=== PATIENT | female | born 1995 | race Caucasian/White ===

== ENCOUNTER 2020-03-08 18:14 | Emergency (ER) | payer OTHER, SELFPAY ==
--- NOTE | ~2020-03-08 | CT_ITS ---
EXAMINATION: CTA brain carotid EXAM DATE: 03/08/2020 20:04 INDICATION: Blurred vision TECHNIQUE: Noncontrast head CT. Spiral CTA of the carotid arteries was performed with intravenous i njection 100 cc of Omnipaque 350. Axial, coronal, sagittal reformatted images reviewed. Additional r eformatted images created on dedicated 3-D workstation. NASCET comparable standard used to assess th e degree of arterial stenosis. Spiral CT angiogram cerebral arteries performed with the same intrave nous injection of contrast. Source images of the brain CTA transferred to dedicated workstation for 3 -D rotational image creation. Coronal, sagittal maximum intensity pixel images also reviewed. The d ose-length product (DLP) for this examination was 1557.98 mGy-cm. The exposure was tailored accordi ng to patient size, and iterative reconstruction (ASIR) was used as additional dose reduction techniq ue. There is no prior study for comparison. FINDINGS: There is no focal carotid plaque or stenosis. The vertebral arteries are codominant. There is no carotid or vertebral basilar arterial dissection or fibromuscular dysplasia. There are no cere bral artery aneurysms. There is symmetric cerebral artery arborization. The sagittal, transverse and sigmoid sinuses enhance normally, no venous sinus thrombosis. Internal cerebral veins also enhance no rmally. There is no acute intraparenchymal hemorrhage. No evidence of intraparenchymal brain mass lesion. N o evidence of acute infarction. There is no mass effect or midline shift. There is no obstructive hy drocephalus suspected. There are no extra-axial collections. There are no calvarial acute fractures . There are no areas of abnormal enhancement on the postcontrast images. IMPRESSION: 1. Unremarkable CTA brain carotid exam. 2. No carotid stenosis. Reviewed, dictated and finalized at location A. ONE DIVER
[2020-03-08 18:18] VITALS: BP 165/113; PULSE 108; RESP 18; TEMP 36.6; O2SAT 96
--- NOTE | 2020-03-08 18:33 | ED.GENADULT ---
HPI - General Adult General Chief complaint: Headache Stated complaint: blurry vision, headache, fatigue x 1 week Time Seen by Provider: 03/08/20 18:19 Source: patient History of Present Illness HPI narrative: Patient is 25 y/o female complaining of moderate, intermittent blurred vision for 1 week. She states that she sees double sometimes. She states concentrating and looking at something for prolonged time aggravates her blurred vision. She also has some slight head pressure. She denies any weakness/numbness in arms or legs. She denies any difficulty with speech or ambulation. Related Data Allergies Allergy/AdvReac Type Severity Reaction Status Date / Time No Known Allergies Allergy Verified 03/08/20 18:25 Review of Systems Constitutional: Constitutional: Denies chills, Denies fever(s), Reports headache(s) and Denies weakness Eyes: Eyes: Reports blurry vision ENT: Reports headache(s) and Denies neck pain Cardiovascular: Cardiovascular: Denies chest pain and Denies dyspnea Respiratory: Respiratory: Denies cough and Denies dyspnea Gastrointestinal: Gastrointestinal: Denies abdominal pain, Denies diarrhea, Denies nausea and Denies vomiting Genitourinary: Genitourinary: Denies hematuria and Denies dysuria Musculoskeletal: Musculoskeletal: Denies back pain and Denies neck pain Neurologic: Reports headache(s) and Denies weakness Exam Const: General: no acute distress and well developed Orientation/consciousness: oriented to person, oriented to place, oriented to time and patient oriented x3 HENMT: Head: normocephalic Ears: external ears normal General nose exam: Normal external nose present Eyes: General: appearance normal, both eyes and all related structures Conjunctivae: conjunctivae normal Neck: Neck: normal visual inspection and full ROM Chest: Chest palpation & inspection: normal inspection of the chest and no tenderness Resp: Effort & Inspection: normal respiratory effort Auscultation: clear to auscultation bilaterally Cardio: Rate: tachycardic Rhythm: regular rhythm GI: GI Palp: No abdominal tenderness and Yes Soft to palpation Skin: General skin exam: normal color and turgor normal Neuro: General: oriented to person, oriented to place, oriented to time and patient oriented x3 Cranial nerves: Yes CN's II-XII intact bilaterally Cognition (Neuro): normal cognition Speech: normal speech Motor exam (neuro): 5/5 motor strength present throughout Sensory Exam: normal sensation Coordination: [id number] test normal and [id number] test normal Extrem: General: normal to inspection, full ROM and no pedal edema Psych: Appearance: grossly normal Mental Status: mental status grossly normal Affect: normal affect Course Vital Signs Vital signs: Vital Signs Temperature 36.6 C 03/08/20 18:18 Pulse Rate 108 H 03/08/20 18:18 Respiratory Rate 18 03/08/20 18:18 Blood Pressure 165/113 H 03/08/20 18:18 Pulse Oximetry 96 03/08/20 18:18 Temperature 36.6 C 03/08/20 18:18 Pulse Rate 89 03/08/20 22:07 Respiratory Rate 18 03/08/20 22:07 Blood Pressure 116/76 03/08/20 22:07 Pulse Oximetry 100 03/08/20 22:07 Medical Decision Making Vital Signs Vital Signs: Vital Signs Temperature 36.6 C 03/08/20 18:18 Pulse Rate 108 H 03/08/20 18:18 Respiratory Rate 18 03/08/20 18:18 Blood Pressure 165/113 H 03/08/20 18:18 Pulse Oximetry 96 03/08/20 18:18 Temperature 36.6 C 03/08/20 18:18 Pulse Rate 89 03/08/20 22:07 Respiratory Rate 18 03/08/20 22:07 Blood Pressure 116/76 03/08/20 22:07 Pulse Oximetry 100 03/08/20 22:07 Lab Data Result diagrams: 03/08/20 18:32 03/08/20 18:32 Labs: Lab Results 03/08/20 03/08/20 03/08/20 Range/Units 18:32 18:32 18:32 WBC 8.8 (4.5-10.0) K/mm3 RBC 4.60 (4.2-5.4) M/mm3 Hgb 13.0 (12.0-15.0) g/dL Hct 38.3 (37.0-47.0) % MCV 83.3 (80-100) fl MCH 28.3
[2020-03-08 18:39] LABS: Basophils Percent Auto 0.5 % (0.2-1.2); Eosinophils Absolute Auto 0.1 K/mm3 (0-0.3); Eosinophils Percent Auto 1.4 % (0-4.4); Hematocrit 38.3 % (37.0-47.0); Immature Granulocyte Absolute 0.02 K/mm3 (0.00-0.031); Immature Granulocyte Percent A 0.2 % (0-0.5); Lymphocytes Absolute Auto 2.86 K/mm3 (0.9-3.2); Lymphocytes Percent Auto 32.6 % (18.3-44.2); Mean Corpuscular HGB Conc 33.9 g/dl (32-36); Mean Corpuscular Hemoglobin 28.3 pg (26-34); Mean Corpuscular Volume 83.3 fl (80-100); Mean Platelet Volume 11.1 fl (7.4-10.4); Monocytes Absolute Auto 0.6 K/mm3 (0.1-0.6); Monocytes Percent Auto 6.7 % (2.6-8.5); Neutrophils Absolute Auto 5.1 K/mm3 (1.3-6.7); Neutrophils Percent Auto 58.6 % (45.5-73.1); Platelet Count Result 317 k/mm3 (150-375); Red Cell Distribution Width 13.2 % (11.5-14.5); White Blood Count 8.8 K/mm3 (4.5-10.0)
[2020-03-08 18:41] LABS: Add Urine Microscopic? NO; Appearance Urine Clear (Clear); Bilirubin Urine Negative (Negative); Blood Urine Negative (Negative); Color Urine Colorless (Yellow); Glucose Urine UA Negative (Negative); Ketones Urine Negative (Negative); Leukocyte Esterase Ur Negative LEU/UL (Negative); Nitrate Urine Negative (Negative); Protein Urine Negative (Negative); Urobilinogen Urine Negative mg/dL (<2.0)
[2020-03-08 18:44] LABS: Specific Grav Ur 1.002 (1.001-1.035)
[2020-03-08 18:50] LABS: Anion Gap 8 mmol/L (8-16); Blood Urea Nitrogen 8 mg/dL (7-17); Calcium 8.9 mg/dL (8.4-10.2); Carbon Dioxide 24 mmol/L (22-30); Chloride 107 mmol/L (98-107); Estimated CRCL calculation 87 ml/min; Estimated Glomerular Filt Rate > 60; Glucose 105 mg/dL (65-105); Potassium 3.7 mmol/L (3.4-5.0); Sodium 139 mmol/L (137-145)
[2020-03-08] MEDS: hydroCHLOROthiazide 25 MG TABLET PO (19:28)
[2020-03-08 19:30] VITALS: BP 150/97
[2020-03-08 21:00] VITALS: BP 122/77; PULSE 84; RESP 18; O2SAT 100
[2020-03-08 22:07] VITALS: BP 116/76; PULSE 89; RESP 18; O2SAT 100
== END 2020-03-08 22:09 | disposition home or self-care (01) ==
PROVIDERS: Emergency Provider Emergency Medicine
DX: H53.8 Other visual disturbances (principal); I10 Essential (primary) hypertension; R51.9 Headache, unspecified
CPT/HCPCS: 36415; 70496; 70498; 80048; 81003; 81025; 85025; 99284; A9270; Q9967

== ENCOUNTER 2021-03-01 12:15 | Outpatient (CLI) | payer OTHER, SELFPAY ==
[2021-03-01 13:01] LABS: Basophils Percent Auto 0.9 % (0.2-1.2); Eosinophils Absolute Auto 0.1 K/mm3 (0-0.3); Eosinophils Percent Auto 1.5 % (0-4.4); Hematocrit 38.4 % (37.0-47.0); Hemoglobin 12.7 g/dL (12.0-15.0); Immature Granulocyte Absolute 0.01 K/mm3 (0.00-0.031); Immature Granulocyte Percent A 0.2 % (0-0.5); Lymphocytes Absolute Auto 1.85 K/mm3 (0.9-3.2); Lymphocytes Percent Auto 40.7 % (18.3-44.2); Mean Corpuscular HGB Conc 33.1 g/dl (32-36); Mean Corpuscular Hemoglobin 27.7 pg (26-34); Mean Corpuscular Volume 83.7 fl (80-100); Mean Platelet Volume 10.6 fl (7.4-10.4); Monocytes Absolute Auto 0.3 K/mm3 (0.1-0.6); Monocytes Percent Auto 6.6 % (2.6-8.5); Neutrophils Absolute Auto 2.3 K/mm3 (1.3-6.7); Neutrophils Percent Auto 50.1 % (45.5-73.1); Platelet Count Result 302 k/mm3 (150-375); Red Blood Count 4.59 M/mm3 (4.2-5.4); Red Cell Distribution Width 12.9 % (11.5-14.5); White Blood Count 4.5 K/mm3 (4.5-10.0)
[2021-03-01 13:11] LABS: Add Urine Microscopic? YES; Appearance Urine Cloudy (Clear); Bilirubin Urine Negative (Negative); Blood Urine 1+ (Negative); Color Urine Yellow (Yellow); Glucose Urine UA Negative (Negative); Ketones Urine Trace mg/dL (Negative); Leukocyte Esterase Ur Trace LEU/UL (Negative); Mucus Urine Rare /lpf; Nitrate Urine Negative (Negative); Protein Urine Negative (Negative); Specific Grav Ur 1.023 (1.001-1.035); Squamous Epithelial Cell Urine Many /hpf (Few); Urobilinogen Urine Negative mg/dL (<2.0)
[2021-03-01 13:16] LABS: Alanine Aminotransferase 16 U/L (4-35); Albumin Level 4.4 g/dL (3.5-5.1); Alkaline Phosphatase 47 U/L (38-126); Anion Gap 7 mmol/L (8-16); Aspartate Amino Transferase 23 U/L (14-36); Bilirubin,Total 0.5 mg/dL (0.2-1.3); Blood Urea Nitrogen 9 mg/dL (7-17); Carbon Dioxide 24 mmol/L (22-30); Chloride 104 mmol/L (98-107); Cholesterol 167 mg/dL (0-200); Estimated Glomerular Filt Rate > 60; Glucose 96 mg/dL (65-110); HDL Direct 52 mg/dL; Sodium 135 mmol/L (137-145); Triglycerides 83 mg/dL (<150)
[2021-03-01 13:27] LABS: LDL Cholesterol Direct 94 mg/dL
[2021-03-01 13:31] LABS: Vitamin D 25 Hydroxy 44.7 ng/mL
[2021-03-01 13:41] LABS: Hemoglobin A1C 5.2 % (<5.7)
[2021-03-03 02:40] LABS: PCP NEGATIVE ng/mL (<25)
[2021-03-05 15:25] LABS: Amphetamines NEGATIVE; Marijuana Metabolites NEGATIVE
[2021-03-05 15:26] LABS: Barbiturates NEGATIVE; Benzodiazepines NEGATIVE; Cocaine Metabolites NEGATIVE
[2021-03-06 10:26] LABS: Folic Acid 16.5 ng/mL (2.76->20)
== END 2021-03-01 12:16 | disposition home or self-care (01) ==
PROVIDERS: Visit Provider Nurse Practitioner Psychiatric/Mental Health
DX: F33.3 Major depressive disorder, recurrent, severe with psychotic symptoms (principal); F41.1 Generalized anxiety disorder; F51.01 Primary insomnia; F31.32 Bipolar disorder, current episode depressed, moderate; Z79.899 Other long term (current) drug therapy; E55.9 Vitamin D deficiency, unspecified
CPT/HCPCS: 36415; 80053; 80061; 80307; 81001; 82248; 82306; 82607; 82746; 83036; 84439; 84443; 85025

== ENCOUNTER 2021-03-07 16:44 | Emergency (ER) | payer OTHER, SELFPAY ==
[2021-03-07 16:52] VITALS: BP 124/80; PULSE 90; RESP 16; TEMP 36.8; O2SAT 100
--- NOTE | 2021-03-07 19:32 | ED.GENADULT ---
HPI - General Adult General Chief complaint: Upper Respiratory Infection Stated complaint: Cold Source: patient and RN notes reviewed Limitations: no limitations History of Present Illness HPI narrative: The unvaccinated patient, non-smoker/nondrinker on min meds for bipolar, presents with subjective breathing difficulties. Patient states she has a weeklong history of air hunger, shortness of breath, that is like a yawn , located in lower neck. No fever, cough, wheezing, insomnia, night dyspnea; no acid reflux, abdominal discomfort-but she is chronically bloated . No calf pain/edema, chest pain; no loss of taste/smell, vomiting/diarrhea; symptoms are mild, intermittent unrelieved with Claritin. Patient recently had an increase in her bipolar med Abilify for increasing bipolar/manic concerns; discussed possible other causes [ GI, infectious, pulmonary (RAD), mood, etc.] will treat broadly with a trial of meds. She also had this month recent stable blood testing [CBC, chemistry, tox screen, etc. ]; patient reassured of stable vital signs [pulse ox 100, P 90 ] and advised to see prior doctors in follow-up. Related Data Home Medications Medication Instructions Recorded Confirmed aripiprazole 10 mg PO DAILY 03/07/21 03/07/21 Allergies Allergy/AdvReac Type Severity Reaction Status Date / Time No Known Allergies Allergy Verified 03/07/21 16:49 Review of Systems Review of Systems: General/Constitutional: No weight loss,fever Eyes: N0: Redness,discharge Ears/Nose/Throat: No: Epistaxis,ear discharge Respiratory: Denies: Hemoptysis Gastrointestinal: No Vomiting, Bleeding-rectal Skin: No Lumps, eruption Neurologic: No Focal Weakness,Sz Hematologic: Denies: Petechiae/Purpura Psychiatric: No: Suicida ideationl All Other Systems: Reviewed and Negative PMFSH Comments At time of signature, agree with nursing past medical, surgical, social and family history. There is no relevant family history pertinent to the presenting complaint Exam Narrative: General Appearance: Overweight/well nourished, No distress EYE: PERRLA, Conjunctiva clear Ears: External ear normal Nose: Normal nose Mouth/Throat: Normal appearing, Normal lips Neck: Supple Respiratory: Airway patent, No respiratory distress Cardiovascular: RRR Abdomen: Soft, Non-tender, Musculoskeletal: Full ROM Skin: Warm, Dry Neurological: A&O x3, CN II-X intact Psychiatric: Normal mood, Normal affect Course Vital Signs Vital signs: Vital Signs Temperature 98.2 F 03/07/21 16:52 Pulse Rate 90 03/07/21 16:52 Respiratory Rate 16 03/07/21 16:52 Blood Pressure 124/80 03/07/21 16:52 Pulse Oximetry 100 03/07/21 16:52 Temperature 98.2 F 03/07/21 16:52 Pulse Rate 90 03/07/21 16:52 Respiratory Rate 16 03/07/21 16:52 Blood Pressure 124/80 03/07/21 16:52 Pulse Oximetry 100 03/07/21 16:52 Medical Decision Making Vital Signs Vital Signs: Vital Signs Temperature 98.2 F 03/07/21 16:52 Pulse Rate 90 03/07/21 16:52 Respiratory Rate 16 03/07/21 16:52 Blood Pressure 124/80 03/07/21 16:52 Pulse Oximetry 100 03/07/21 16:52 Temperature 98.2 F 03/07/21 16:52 Pulse Rate 90 03/07/21 16:52 Respiratory Rate 16 03/07/21 16:52 Blood Pressure 124/80 03/07/21 16:52 Pulse Oximetry 100 03/07/21 16:52 Discharge Plan Discharge Clinical Impression: Globus sensation Patient Disposition: Home, Self-Care Condition: Stable Instructions: Shortness of Breath (ED) Additional Instructions: See your other doctors as scheduled [counselor, urology, etc.] Prescriptions: New omeprazole magnesium [Prilosec OTC] 20 mg tablet,delayed release (DR/EC) 20 mg PO DAILY Qty: 20 RF: 2 ipratropium bromide 17 mcg/actuation HFA aerosol inhaler 2 puff inhalation TID Qty: 12.9 RF: 1 No Action aripiprazole 10 mg tablet 10 mg PO DAILY RF: 0 Follow-up/Referrals: PHYSICIAN,CASE REPAIRER [P
== END 2021-03-07 17:40 | disposition home or self-care (01) ==
PROVIDERS: Emergency Provider Emergency Medicine
DX: R09.89 Other specified symptoms and signs involving the circulatory and respiratory systems (principal); F31.9 Bipolar disorder, unspecified
CPT/HCPCS: 99213; G0463

== ENCOUNTER 2021-05-29 09:22 | Emergency (ER) | payer OTHER, SELFPAY ==
[2021-05-29] VITALS (11 sets, daily range): BP systolic 88–126; BP diastolic 63–78; PULSE 67–116; RESP 15–22; TEMP 36.7–36.8; O2SAT 100
--- NOTE | ~2021-05-29 | CT_ITS ---
EXAMINATION: CT abdomen pelvis w con DATE: 05/29/2021 11:52 INDICATION: Abdominal pain. Nausea and vomiting. TECHNIQUE: Computed tomography (CT) of the abdomen and pelvis was performed with 100 mL Omnipaque 350 intravenous contrast. Automated exposure control and iterative reconstruction technique were employe d. The dose-length product was 370.72 mGy-cm. COMPARISON: None. FINDINGS: The visualized portions of the lung bases are clear without pneumonia or pleural effusion. The heart size is normal. No pericardial effusion. The liver, gallbladder, spleen, pancreas, adrenal glands, and kidneys are normal. There are no dilated loops of bowel. The appendix is normal. There ar e no pathologically enlarged lymph nodes. There is no free intraperitoneal fluid. The bones are unrem arkable. IMPRESSION: 1. No etiology for the patient's symptoms. Reviewed, dictated and finalized at location A. NSED ACUPUNCTURIST
--- NOTE | ~2021-05-29 | XR_ITS ---
EXAMINATION: XR chest 2V DATE: 05/29/2021 10:19 INDICATION: Chest tightness. TECHNIQUE: Frontal and lateral views of the chest were obtained. COMPARISON: None. FINDINGS: The chest demonstrates clear lungs without pneumonia, pleural effusion, or pneumothorax. Th e heart size is normal. IMPRESSION: 1. No acute cardiopulmonary disease. Reviewed, dictated and finalized at location A. LE APPLICATIONS ANALYST
[2021-05-29 09:49] LABS: Basophils Absolute Auto 0.1 K/mm3 (0.0-0.1); Basophils Percent Auto 0.7 % (0.2-1.2); Eosinophils Percent Auto 0.1 % (0-4.4); Hematocrit 42.5 % (37.0-47.0); Hemoglobin 13.7 g/dL (12.0-15.0); Immature Granulocyte Absolute 0.02 K/mm3 (0.00-0.031); Immature Granulocyte Percent A 0.3 % (0-0.5); Lymphocytes Absolute Auto 1.08 K/mm3 (0.9-3.2); Lymphocytes Percent Auto 15.5 % (18.3-44.2); Mean Corpuscular HGB Conc 32.2 g/dl (32-36); Mean Corpuscular Hemoglobin 28.1 pg (26-34); Mean Corpuscular Volume 87.1 fl (80-100); Mean Platelet Volume 10.6 fl (7.4-10.4); Monocytes Absolute Auto 0.3 K/mm3 (0.1-0.6); Monocytes Percent Auto 3.9 % (2.6-8.5); Neutrophils Absolute Auto 5.5 K/mm3 (1.3-6.7); Neutrophils Percent Auto 79.5 % (45.5-73.1); Platelet Count Result 347 k/mm3 (150-375); Red Blood Count 4.88 M/mm3 (4.2-5.4); Red Cell Distribution Width 12.9 % (11.5-14.5)
--- NOTE | 2021-05-29 09:52 | ECG_ITS ---
Measurements Intervals [place] Rate: 76 P: 47 [place]: 126 QRS: 11 QRSD: 85 T: 52 QT: 387 QTc: 435 Interpretive Statements SINUS RHYTHM BASELINE ARTIFACT BUT PROBABLY NORMAL EKG NO PREVIOUS ECG AVAILABLE FOR COMPARISON Electronically Signed On 05-29-2021 13:23:39 CHANNEL ROUGHER by Shanna Cai M.D.
--- NOTE | 2021-05-29 09:55 | ED.NAVMDI ---
HPI - Nausea/Vomiting/Diarrhea General Chief complaint: Nausea/Vomiting/Diarrhea Stated complaint: N/V Time Seen by Provider: 05/29/21 09:32 Source: patient Mode of arrival: ambulatory Limitations: no limitations History of Present Illness HPI Narrative: This is a 26 year old female that presents to the ER for nausea ongoing over the last couple of days. Associated with chills and headache. Also reports chest tightness and feeling like she is having a hard time catching her breath. She is unsure if this is due to her anxiety. She is not influenza or Covid vaccinated. Reports she just had COVID a month and a half ago. Denies fever, vomiting, diarrhea, cough, congestion, or sore throat. Related Data Home Medications Medication Instructions Recorded Confirmed aripiprazole 10 mg PO DAILY 03/07/21 03/07/21 Allergies Allergy/AdvReac Type Severity Reaction Status Date / Time No Known Allergies Allergy Verified 03/07/21 16:49 Review of Systems Review of Systems: CONSTITUTIONAL: Denies fever CARDIOVASCULAR: Reports chest pain RESPIRATORY: Reports dyspnea. Denies cough GASTROINTESTINAL: Reports abdominal pain, nausea. Denies vomiting, or diarrhea. GENITOURINARY: Denies dysuria All systems reviewed & are unremarkable except as noted in HPI and below PMFSH Surgical History Surgical History (Updated 05/29/21 @ 10:05 by Jayda Valentine PA-C) History of dilation and curettage Social History Social History (Updated 05/29/21 @ 10:05 by Jayda Valentine PA-C) Smoking status: Former smoker Exam Narrative: GENERAL: Well-appearing, well-nourished, and in no acute distress. HEAD: Normocephalic, atraumatic. EYES: EOMI. ENT: Mucous membranes moist. Oropharynx without tonsillar hypertrophy exudate or other lesions. CHEST: Clear to auscultation. No respiratory distress. No wheezes rales or rhonchi HEART: Regular rate and rhythm. No murmur heard. Normal peripheral pulses. ABDOMEN: Soft, nontender, nondistended, normal active bowel sounds. EXTREMITIES: Normal range of motion. No edema. SKIN: Warm, dry, no rash. NEURO: No focal deficits. Alert and oriented x3. PSYCH: Normal mood and affect Course Vital Signs Vital signs: Vital Signs Temperature 98.2 F 05/29/21 09:51 Pulse Rate 93 03/12/22 09:51 Respiratory Rate 22 H 05/29/21 09:51 Blood Pressure 126/63 05/29/21 09:51 Pulse Oximetry 100 05/29/21 09:51 Temperature 98.1 F 05/29/21 11:33 Pulse Rate 79 05/29/21 11:33 Respiratory Rate 18 05/29/21 11:33 Blood Pressure 105/70 05/29/21 11:33 Pulse Oximetry 100 05/29/21 11:33 MDM - Nausea/Vomiting/Diarrhea MDM Narrative Medical decision making narrative: Patient presents to the emergency department for nausea, chills and headaches. She is afebrile and nontoxic-appearing. Orthostatic on arrival, given 2 L of IV fluids in the ED with relief. CBC without concerning findings. Metabolic panel with some evidence of dehydration. UA without evidence of infection. Bedside test is negative. Influenza screen was negative. Chest x-ray without acute cardiopulmonary abnormality. CT scan of the abdomen and pelvis without acute findings. EKG without concerning changes. Patient hydrated with improvement in metabolic panel. Has now closed her gap. Able to tolerate p.o. challenge. Reports she is feeling better and ready for discharge home. Patient was instructed on continued care of viral infection. She is to follow-up with her primary care doctor. She was given warnings to return to the ER Lab Data Attestation: I reviewed the patient's lab results. Result diagrams: 05/29/21 09:41 05/29/21 13:31 Labs: Lab Results 05/29/21 05/29/21 05/29/21 Range/Units 09:41 09:41 09:41 WBC 7.0 (4.5-10.0) K/mm3 RBC 4.88 (4.2-5.4) M/mm3 Hgb 13.7 (12.0-15.0) g/dL Hct 42.5 (37.0-47.0) % MCV 87.1 (80-100) fl MCH 28.1 (26-34) pg MCHC 32.2
[2021-05-29 09:59] LABS: Alanine Aminotransferase 16 U/L (4-35); Alkaline Phosphatase 60 U/L (38-126); Anion Gap 18 mmol/L (8-16); Aspartate Amino Transferase 26 U/L (14-36); Bilirubin,Total 0.9 mg/dL (0.2-1.3); Blood Urea Nitrogen 17 mg/dL (7-17); Calcium 8.9 mg/dL (8.4-10.2); Carbon Dioxide 15 mmol/L (22-30); Chloride 105 mmol/L (98-107); Estimated CRCL calculation 92 ml/min; Estimated Glomerular Filt Rate > 60; Glucose 94 mg/dL (65-110); Lipase 59 U/L (23-300); Potassium 4.4 mmol/L (3.4-5.0); Sodium 138 mmol/L (137-145)
[2021-05-29] MEDS: SODIUM CHLORIDE 0.9% IV 1,000 ML 999 ML IV CONT ×2 (10:07→11:31)
[2021-05-29] MEDS: FAMOTIDINE 20 MG/2 ML VIAL IV PUSH (10:08)
[2021-05-29] MEDS: ONDANSETRON INJ 4 MG/2 ML VIAL IV PUSH (10:08)
[2021-05-29 10:09] LABS: Add Urine Microscopic? YES; Appearance Urine Clear (Clear); Bilirubin Urine Negative (Negative); Blood Urine 2+ (Negative); Color Urine Yellow (Yellow); Glucose Urine UA Negative (Negative); Ketones Urine 2+ mg/dL (Negative); Leukocyte Esterase Ur Negative LEU/UL (Negative); Mucus Urine Rare /lpf; Nitrate Urine Negative (Negative); Protein Urine 1+ mg/dL (Negative); RBC Urine 0-2 /hpf (0-2); Specific Grav Ur 1.028 (1.001-1.035); Squamous Epithelial Cell Urine Rare /hpf (Few); Urobilinogen Urine Negative mg/dL (<2.0); WBC Urine 0-3 /hpf
[2021-05-29 10:14] LABS: INR 1.1; Prothrombin Time 13.8 Seconds (11.1-14.7)
[2021-05-29 10:15] LABS: Partial Thromboplastin Time 25.2 SECONDS (22.3-36.8)
[2021-05-29 10:22] LABS: Troponin I < 0.012 ng/mL (0.000-0.034)
[2021-05-29 13:54] LABS: Anion Gap 14 mmol/L (8-16); Blood Urea Nitrogen 11 mg/dL (7-17); Calcium 7.9 mg/dL (8.4-10.2); Carbon Dioxide 15 mmol/L (22-30); Chloride 108 mmol/L (98-107); Estimated CRCL calculation 106 ml/min; Estimated Glomerular Filt Rate > 60; Glucose 67 mg/dL (65-110); Potassium 4.6 mmol/L (3.4-5.0); Sodium 137 mmol/L (137-145)
== END 2021-05-29 14:30 | disposition home or self-care (01) ==
PROVIDERS: Physician Assistant; Emergency Provider Emergency Medicine
DX: B34.9 Viral infection, unspecified (principal); Z86.16 Personal history of COVID-19; Z87.891 Personal history of nicotine dependence
CPT/HCPCS: 36415; 51701; 71046; 74177; 80048; 80053; 81001; 81025; 83690; 84484; 85025; 85610; 85730; 87804; 93005; 96361; 96365; 96375; 99284; J0131; J2405; J7030; Q9967

== ENCOUNTER 2024-10-31 12:55 | Outpatient (CLI) | payer OTHER, SELFPAY ==
--- OUTSIDE RECORDS SUMMARY | 2024-10-31 13:12 | XMS_ITS | Clinical Summary ---
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 Name Role Phone NicolasJimmy rosen Chad SHEETS Primary Care Provider [phone] Allergies Active Allergy Reactions Criticality Noted Date Comments Phenazopyridine Hyperactive 11/08/2023 Medications No known medications Active Problems Problem Noted Date Diagnosed Date Nondisplaced fracture of fif th metatarsal bone, left foot, initial encounter for closed fracture 09/06/2024 Encounters Date Type Department Care Team Description 10/23/2024 12:56 PM CDT - 10/23/2024 11:59 PM CDT Hospital Encounter [facility] [address] [place] [address] Peng Gustafson, PT Fx Metacarpal Bone Discharge Disposition: Home or Self Care (Routine Discharge) 10/23/2024 Travel 10/09/2024 12:59 PM CDT - 10/09/2024 11:59 PM CDT Hospital Encounter [facility] [address] [place] [address] Peng Gustafson, PT Ata Duncan, Sallie Steen, NUTRITION HELPER Ankle/foot Pain Discharge Disposition: Home or Self Care (Routine Discharge) 10/09/2024 Travel 10/02/2024 2:10 PM CDT - 10/02/2024 11:59 PM CDT Hospital Encounter [facility] [address] [place] [address] Peng Gustafson, PT Ata Duncan, Sallie Steen, NUTRITION HELPER Ankle/foot Pain Discharge Disposition: Home or Self Care (Routine Discharge) 10/02/2024 Travel 09/26/2024 1:34 PM CDT - 09/26/2024 11:59 PM CDT Hospital Encounter [facility] [address] [place] [address] Peng Gustafson, PT Ata Duncan, Corby Rivera, NUTRITION HELPER Ankle/foot Pain Discharge Disposition: Home or Self Care (Routine Discharge) 09/26/2024 Travel 09/24/2024 3:07 PM CDT - 09/24/2024 11:59 PM CDT Hospital Encounter [facility] [address] [place] [id number] Peng Gustafson, Ata Rosario, Cheryl Collier, NUTRITION HELPER Foot Pain Discharge Disposition: Home or Self Care (Routine Discharge) 09/24/2024 Travel 09/19/2024 1:34 PM CDT - 09/19/2024 11:59 PM CDT Hospital Encounter [facility] [address] [place] [address] Peng Gustafson, Ata Rosario, DPM Metatarsal Fx Discharge Disposition: Home or Self Care (Routine Discharge) 09/19/2024 Travel 09/17/2024 1:42 PM CDT - 09/17/2024 11:59 PM CDT Hospital Encounter [facility] [address] [place] [id number] Peng Gustafson, Ata Rosario, DPM Metatarsal Fx Discharge Disposition: Home or Self Care (Routine Discharge) 09/17/2024 Travel 09/11/2024 2:09 PM CDT - 09/11/2024 11:59 PM CDT Hospital Encounter [facility] [address] [place] [address] Peng Gustafson, Ata Rosario, Sallie Steen, NUTRITION HELPER Ankle/foot Pain Discharge Disposition: Home or Self Care (Routine Discharge) 09/11/2024 Travel 09/09/2024 8:26 AM CDT - 09/09/2024 11:59 PM CDT Hospital Encounter [facility] [address] [place] [address] Peng Gustafson, PT Ata Duncan DPM Fuchs, Sydney R, PTA Ankle/foot Pain Discharge Disposition: Home or Self Care (Routine Discharge) 09/09/2024 Travel 09/03/2024 3:39 PM CDT - 09/03/2024 11:59 PM CDT Hospital Encounter [facility] [address] [place] [address] Peng Gustafson, PT Fracture Of Foot Discharge Disposition: Home or Self Care (Routine Discharge) 09/03/2024 Travel 08/27/2024 Telephone [facility] [address] [facility] [place] [address] Ata Duncan DPM Appointment Request 08/02/2024 11:08 PM CDT - 08/03/2024 2:01 AM CDT Emergency [facility] [address] [facility] [place] [address] Jose Narvaez DO Ankle Pain Discharge Disposition: Home or Self Care (Routine Discharge) 08/02/2024 Travel from Last 3 Months Social History Tobacco Use Types Packs/Day Years Used Date Smoking Tobacco: Former Cigarettes Smokeless Tobacco: Never Tobacco Cessation:Counseling Given: Not Answered Alcohol Use Standard Drinks/Week Comments Not Currently 0 (1 standard drink = 0.6 oz pur e alcohol) Comments No Sex and Gender Information Value Date Recorded Sex Assigned at Not on file Legal Sex Female 2:56 PM CDT Gender Identity Not on file Sexual Orientation Not on file Last Filed Vital Signs Vital Sign Reading Time Taken Comments Blood Pressure 137/60 08/02/2024 11:13 PM CDT Pulse 108 08/02/2024 11:13 PM CDT Temperature 36.4 C (97.6 F) 08/02/2024 11:13 PM CDT Respiratory Rate 18 08/02/2024 11:13 PM CDT Oxygen Saturation 100% 08/02/2024 11:13 PM CDT Inhaled Oxygen Concentration - - Weight 63.5 kg (140 lb) 08/02/2024 11:13 PM CDT Height 154.9 cm (5' 1) 08/02/2024 11:13 PM CDT Body Mass Index 26.45 08/02/2024 11:13 PM CDT Plan of Treatment Health Maintenance Due Date Last Done Comments Cervical Cancer Screening Pap Smear (Age 30 to 64) Every 3 Years 1994 Annual Physical 1997 Hepatitis C 01/09/2012 DTaP, Tdap and Td Vaccines (6 - Td or Tdap) 12/01/2018 12/01/2008, 11/15/1999, 04/17/1995, Additional history exists HPV Vaccines (1 - 3-dose SCDM series) 2021 COVID-19 Vaccine ( season) 2023 Cervical Cancer Screening Pap with HPV Testing (Age 30 to 64) Every 5 Years 01/09/2024 Cervical Cancer Screening with HPV 01/09/2024 Hepatitis B Vaccines Completed 01/18/1995, 1994, 1994 Meningococcal B Vaccine Aged Out No l onger eligible based on patient's age to complete this topic Meningococcal Vaccine Aged Out No juani jonathan eligible based on patient's age to complete this topic Pneumococcal Vaccine: Pediatrics (0 to 5 Years) and At-Risk Patients (6 to 49 Years) Aged Out No longer eligible based on patient's age to complete this topic RSV Immunizations Under 20 Months Aged Out No longer eligible based on patient's age to complete this topic Procedures Procedure Name Priority Date/Time Associated Diagnosis Comments XR FOOT LT 3V STAT 08/02/2024 11:48 PM CDT from Last 3 Months Results * XR FOOT LT 3V (08/02/2024 11:48 PM CDT) Anatomical Region Laterality Modality Foot Radiographic Kathi ging 08/03/2024 12:2 4 AM CDT Impressions 08/03/2024 12:27 AM CDT IMPRESSION: Mildly displaced transversely oriented fifth metatarsal base fracture. Referred By: Interpreted By: Jack Bentley DO, 08/03/2024 12:24 AM Narrative 08/03/2024 12:27 AM CDT [facility] [address] [place] [id number] Examination: XR FOOT LT 3V Exam time: 08/02/2024 11:48 PM Clinical history: Lateral foot swelling and bruising after fall. Comparison: None. Technique: AP, lateral, and oblique views of the left foot. Findings: Soft tissue swelling overlies the lateral and dorsal aspect of the foot. There is a normal anatomic variant biphalangeal fifth toe. There is a transversely oriented fracture of the fifth metatarsal base with approximately 2 to 3 mm of medial displacement of the distal fracture fragment. This fracture does not appear to extend to the articular surface of the tarsometatarsal joint. A tiny plantar calcaneal enthesophyte is noted. Procedure Note Jack Bentley DO - 08/03/[address] [place] [address] Examination: XR FOOT LT 3V Exam time: 08/02/2024 11:48 PM Clinical history: Lateral foot swelling and bruising after fall. Comparison: None. Technique: AP, lateral, and oblique views of the left foot. Findings: Soft tissue swelling overlies the lateral and dorsal aspect of the foot.There is a normal anatomic variant biphalangeal fifth toe. There is atransversely oriented fracture of the fifth metatarsal base withapproximately 2 to 3 mm of medial displacement of the distal fracturefragment. This fracture does not appear to extend to the articularsurface of the tarsometatarsal joint. A tiny plantar calcanealenthesophyte is noted. IMPRESSION: Mildly displaced transversely oriented fifth metatarsal base fracture. 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
--- OUTSIDE RECORDS SUMMARY | 2024-10-31 13:12 | XMS_ITS | Clinical Summary ---
Author Organization [facility] [address] Address [address] [place] [id number] Care Team Providers Care Zinc Etcher Name Role Phone Wyatt Duncan NP Primary Care Provider [phone] Allergies No known active allergies Medications doxycycline 100 mg tablet Take 1 tablet/capsule (100 mg total) by mouth daily Active clindamycin (CLEOCIN T) 1 % lotionIndication s:Acne vulgaris,Hidrade nitis suppurativa Apply topically 2 (two) times a day To face and groin 60 mL 2 4 Active spironolactone (ALDACTONE) 50 mg tabletIndication s:Acne vulgaris Take 1 tablet (50 mg total) by mouth daily 30 tablet 2 4 Active Active Problems Problem Noted Date Diagnosed Date Generalized abdominal pain 06/27/2021 Assessment & Plan (06/27/2021 10:39 AM CDT): No acute abdominal findings at this time. Stick with a bland type diet,no grease, no spice, low amount of milk, monitor foods that give her problems with her stomach our cause bloating. Monitor stooling for color, consistency, any blood, mucus, or abnormal discoloration. To also monitor for how many stools per day and home frequently they are coming during the week If abdominal pain starts of again to try and note location, occurrence, anything that we can find a cause for it. Also note if it is dull sharp aching, note if it is associated with abnormal stooling again, nausea, vomiting. If it is severe she go to the ER. Anxiety 06/27/2021 Assessment & Plan (06/27/2021 10:48 AM CDT): Voices no complaints of anxiety at this time. Has learned how to cope with it. No medication at this time. Did talk with her in regards if she needs counseling or any other intervention to return and I will help. Acute cystitis without hematuria 06/27/2021 Assessment & Plan (06/27/2021 10:57 AM CDT): Did have pain with urination. Was treated fot UTI about 2 weeks ago,will repeat urine today. Requests that patient eat balanced drink fluids at least 64 oz per day.,no soda, OJ,chocolate, are sawdust drier sheets in fine delicate. Premature atrial contraction 06/12/2014 Overview (06/23/2016): Premature atrial contractions Tobacco dependence syndrome 06/12/2014 Overview (06/23/2016): Tobacco abuse Assessment & Plan (06/27/2021 10:49 AM CDT): Talked with her in regards to tobacco dependence, states that she is trying to stop. Did give her some resources for senior care assistant with different program from the [facility] and [employer]. 06/12/2014 Overview (06/23/2016): Palpitations 06/12/2014 Overview (06/23/2016): Palpitations Assessment & Plan (06/27/2021 10:32 AM CDT): Noted this time will continue to monitor, requests that she keep a diary of events when the palpitations occur, but she was doing, which she had eaten, if she had chest pain with the event, shortness of breath, or diaphoresis. Lab today. To avoid stimulant type drink, no energy drinks, no OTC drugs that would cause heart stimulus. States does not VAP, are do any other type of drugs of abuse, or marijuana. Immunizations Immunization Administration Dates Next Due Influenza, Unspecified 03/20/2021(Deferr ed: Patient Refused),03/20/2020(Deferred: Patient Refused) Surgical History Surgery Date Site/Laterality Comments DILATION AND CURETTAGE OF UTERUS Medical History Medical History Date Comments Hx Other Medical premature atria l contractions; Comments: MAF 06/12/2014 - Anxiety Depression Family History Medical History Relation Name Comments Heart disease Father Mental illness Father Autoimmune disease Mother Mental illness Sister 1 Mental illness Sister 2 Relation Name Status Comments Father Alive Mother Alive Sister 1 Alive Sister 2 Alive Social History Tobacco Use Types Packs/Day Years Used Date Smoking Tobacco: Former Cigarettes 0 06/23/2008 - 06/23/2018 Alcohol Use Standard Drinks/Week Comments No 0 (1 standard drink = 0.6 oz pur e alcohol) AUDIT-C Answer Date Recorded Q1: How often do you have a drink containing alc ohol? Never 06/23/2021 Average Number of Drinks Not on file 022 Q3: How often do you have si x or more drinks on one occasion? Never 06/23/2021 PHQ-2 Answer Date Recorded PHQ-2 Total Score (If total score is 3 or more points, staff should administer the PHQ-9) 2 06/23/2021 Personal Safety Answer Date Recorded Getting School Help Needed Not on file 05/19 Comments Unknown Sex and Gender Information Value Date Recorded Sex Assigned at Not on file Legal Sex Female 3:36 AM RN PRIOR AUTHORIZATION Gender Identity Not on file Sexual Orientation Not on file Obstetrics History Last Filed Vital Signs Vital Sign Reading Time Taken Comments Blood Pressure 110/78 06/23/2021 3:36 PM CDT Pulse 66 06/23/2021 3:36 PM CDT Temperature 36.8 C (98.2 F) 06/23/2021 3:36 PM CDT Respiratory Rate 16 06/23/2021 3:36 PM CDT Oxygen Saturation 99% 06/23/2021 3:36 PM CDT Inhaled Oxygen Concentration - - Weight 66 kg (145 lb 8 oz) 06/23/2021 3:36 PM CD T Height 152.4 cm (5') 06/23/2021 3:36 PM CDT Body Mass Index 28.42 06/23/2021 3:36 PM CDT Plan of Treatment Health Maintenance Due Date Last Done Comments Cervical Cancer Screening 1994 Hepatitis C Screening 1994 Varicella Vaccines (1 of 2 - 13+ 2-dose series) 2007 Regular Well Visit/Exam 18-64 01/09/2012 DTaP/Tdap/Td Vaccine (6 - Td or Tdap) 12/01/2018 12/01/2008, 11/15/1999, 04/17/1995, Additional history exists HPV Vaccines (1 - 3-dose SCDM series) 2021 Depression Screening 06/23/2022 06/23/2021 Influenza Vaccine (#1) 2024 Hepatitis B Screening Completed 01/18/1995 , 1994, 1994 Pneumococcal vaccine <65 Aged Out No longer eligible based on patient's age to complete this topic Insurance [facility] Care Teams Zinc Etcher Relationship Specialty Start Date End Date Wyatt Duncan NP [address] [facility] [address] [place] [address] PCP - General Nurse Practitioner 06/22/21
[2024-10-31 13:27] LABS: Hematocrit 39.4 % (35.0-49.0); Hemoglobin 13.1 g/dL (12.0-15.0); Immature Granulocyte Percent A 0.2 % (0.0-0.0); Lymphocytes Absolute Auto 1.84 K/mm3 (1.10-4.50); Mean Corpuscular HGB Conc 33.2 g/dL (32-36); Mean Corpuscular Hemoglobin 28.5 pg (27.0-31.0); Mean Corpuscular Volume 85.7 fL (78.0-102.0); Nucleated Red Blood Cells Absolute Auto 0.00 K/mm3 (0.00-0.00); Nucleated Red Blood Cells Perc 0.0 % (0-0.0); Platelet Count Result 294 K/mm3 (150-420); Red Blood Count 4.60 M/mm3 (4.20-5.40); White Blood Count 4.6 K/mm3 (4.8-10.8)
[2024-10-31 14:39] LABS: Alanine Aminotransferase 14 U/L (6-35); Albumin Level 4.6 g/dL (3.5-5.1); Alkaline Phosphatase 43 U/L (38-126); Anion Gap 7 mmol/L (4-12); Aspartate Amino Transferase 24 U/L (14-36); Bilirubin,Total 0.7 mg/dL (0.2-1.3); Blood Urea Nitrogen 10 mg/dL (7-17); Calcium 9.6 mg/dL (8.4-10.2); Carbon Dioxide 26 mmol/L (22-30); Chloride 107 mmol/L (98-107); Cholesterol 160 mg/dL (0-200); Estimated Glomerular Filt Rate > 60; Glucose 91 mg/dL (65-110); HDL Direct 60 mg/dL; Osmolality Calculated 289 mOsm/kg (285-295); Potassium 4.5 mmol/L (3.4-5.0); Sodium 140 mmol/L (137-145); Total Protein 7.0 g/dL (6.3-8.2); Triglycerides 67 mg/dL (<150)
[2024-10-31 14:41] LABS: Hemoglobin A1C 5.4 % (<5.7)
[2024-10-31 15:09] LABS: Thyroid Stimulating Hormone 1.770 uIU/mL (0.465-4.680)
[2024-10-31 15:29] LABS: Vitamin B12 645.0 pg/mL (239-931)
== END 2024-10-31 12:56 | disposition home or self-care (01) ==
PROVIDERS: PCP Internal Medicine; Visit Provider Clinical Nurse Specialist
DX: Z13.29 Encounter for screening for other suspected endocrine disorder (principal); F31.0 Bipolar disorder, current episode hypomanic; F90.2 Attention-deficit hyperactivity disorder, combined type; Z13.220 Encounter for screening for lipoid disorders; R73.01 Impaired fasting glucose; E55.9 Vitamin D deficiency, unspecified
CPT/HCPCS: 36415; 80053; 80061; 82306; 82607; 83036; 84443; 85025

== ENCOUNTER 2024-12-22 10:24 | Emergency (ER) | payer OTHER, SELFPAY ==
--- OUTSIDE RECORDS SUMMARY | 2024-12-21 15:09 | XMS_ITS | Encounter Summary ---
Author Organization [facility] Address [facility] [place] [address] Care Team Providers Care English Composition Teacher Name Role Phone Jimmy Contreras DO Primary Care Provider [phone] Reason for Visit * Reason Comments Medical Problem Encounter Details Date Type Department Care Team (Late st Contact Info) Description 12/21/2024 3:09 PM CDT - 12/21/2024 4:25 PM CDT Emergency [facility] [address] [place] [address] [place] [address] Jh Pandey DO [address] [place] [phone] Medical Problem Discharge Disposition: Home or Self Care (Routine Discharge) Social History Tobacco Use Types Packs/Day Years Used Date Smoking Tobacco: Former Cigarettes Smokeless Tobacco: Never Alcohol Use Standard Drinks/Week Comments Not Currently 0 (1 standard drink = 0.6 oz pur e alcohol) Comments No Sex and Gender Information Value Date Recorded Sex Assigned at Female 12/21/2024 3:21 PM CDT Legal Sex Female 2:56 PM CDT Gender Identity Not on file Sexual Orientation Not on file documented as of this encounter Last Filed Vital Signs Vital Sign Reading Time Taken Comments Blood Pressure 144/96 12/21/2024 3:18 PM CDT Pulse 79 12/21/2024 3:18 PM CDT Temperature 35.9 C (96.6 F) 12/21/2024 3:18 PM CDT Respiratory Rate 16 12/21/2024 3:18 PM CDT Oxygen Saturation 99% 12/21/2024 3:18 PM CDT Inhaled Oxygen Concentration - - Weight 63.5 kg (140 lb) 12/21/2024 3:18 PM CDT Height 154.9 cm (5' 1) 12/21/2024 3:18 PM CDT Body Mass Index 26.45 12/21/2024 3:18 PM CDT documented in this encounter Functional Status * Calculated C-SSRS Risk Score (Lifetime/Recent) Answer Date of Assessment Author Status No Risk Indicated 12/21/2024 3:19 PM CDT Leroy Flores , DOLORES Active * [place] Suicide Severity Rating Scale (Screener/Recent Self-Report) Question Answer Date of Assessment Author Status 1. Wish to be (Past 1 Month) No 12/21/2024 3:19 PM CDT Leroy Flores, DOLORES Active 2. Non-Specific Active Suicidal Thoughts (Past 1 Month) No 12/21/2024 3:19 PM CDT Leroy Flores, DOLORES Active 6. Suicidal Behavior (Lifetime) No 12/21/2024 3:19 PM CDT Leroy Flores, DOLORES Active documented as of this encounter Discharge Instructions * Attachments The following attachments cannot be sent through Care Everywhere. * Chronic Neck Pain Discharge Instructions (Barbadian) * Paresthesia Discharge Instructions (Barbadian) documented in this encounter ED Notes * Jh Pandey DO - 12/21/2024 4:25 PM CDT Chief Complaint Chief Complaint Patient presents with Medical Problem History of Present Illness Patient is a 29 yo F here for L neck and face pain and paresthesia Patient afebrile and vitally stable Patient reports she has a multiple month long hx of L neck arm pain and worsening paresthesia Patient reports she is pending EMG study and C spine MRI, she was hoping to get pain relief and these studies in the ER Patient denies falls or injuries No fevers or chills No recent surgeries No new medications She reports she has discussed trial of gabapentin with PCP Patient reports she is frustrated Her story fluctuates with timeline from days, to months to different durations Patient reports this is stressful I explained we could test blood draws and consult neurology via robot to see if signs of symptoms arrant transfer for expedited neurolgoy work up Patient reports she does not want to do that and would like to go home Medical History ALLERGIES: Review of patient's allergies indicates: Allergen Reactions Pyridium [Phenazopyridine] Hyperactive MEDICATIONS: Prior to Admission medications Not on File PAST MEDICAL HISTORY: Past Medical History[1] PAST SURGICAL HISTORY: Past Surgical History[2] FAMILY HISTORY: Family History[3] SOCIAL HISTORY: Social History[4] Review of Systems Review of Systems Physical Exam Filed Vitals: 12/21/24 1518 BP: (!) 144/96 Pulse: 79 Resp: 16 Temp: 96.6 ??F (35.9 ??C) TempSrc: Temporal SpO2: 99% Weight: 63.5 kg (140 lb) Height: 1.549 m (5' 1) Physical Exam Vitals and nursing note reviewed. Constitutional: Appearance: Normal appearance. HENT: Head: Normocephalic and atraumatic. Right Ear: External ear normal. Left Ear: External ear normal. Nose: Nose normal. Mouth/Throat: Mouth: Mucous membranes are moist. Pharynx: Oropharynx is clear. Eyes: Extraocular Movements: Extraocular movements intact. Conjunctiva/sclera: Conjunctivae normal. Cardiovascular: Rate and Rhythm: Normal rate and regular rhythm. Pulses: Normal pulses. Heart sounds: Normal heart sounds. Pulmonary: Effort: Pulmonary effort is normal. Breath sounds: Normal breath sounds. Musculoskeletal: General: No deformity or signs of injury. Normal range of motion. Cervical back: Normal range of motion and neck supple. Skin: General: Skin is warm and dry. Capillary Refill: Capillary refill takes less than 2 seconds. Neurological: General: No focal deficit present. Mental Status: She is alert and oriented to person, place, and time. Cranial Nerves: No cranial nerve deficit. Sensory: No sensory deficit. Motor: No weakness. Coordination: Coordination normal. Gait: Gait normal. Comments: L arm and face sensation intact, radial pulse 2+/3 L arm brace velcro in place Psychiatric: Mood and Affect: Mood normal. Diagnostic Studies / Procedures ELECTROCARDIOGRAMS: No results found for this visit on 12/21/24. LABORATORY STUDIES: No results found for this visit on 12/21/24. IMAGING STUDIES No orders to display ED Course / Medical Decision Making Medical Decision Making Patient declined labs or images and requested to go home She has capacity to decline care RBA discussed, I explained we did not rule out CVA, infection or any life threatening causes of hersymptoms She requested discharge and restated my concerns to me Upon discharge she was frustrated that I did not order Gabapentin. Patient again refuses care She stated You are stressing me out as a single mother. I offered full work up as well as consult with counselor and she walked out from the department She is aware she can return for full care anytime WDX: L arm neck face pain and paresthesia chronic condition DDX: I considered CVA, sepsis, trigeminal neuralgia but these could not be evaluated due to patientdeclining care SDOH: patient has PCP and neurology referral pending Clinical Impression Chronic neck pain (Primary) Paresthesia Disposition: Discharge [1] History reviewed. No pertinent past medical history. [2] Past Surgical History: Procedure Laterality Date DILATION/CURETTAGE,DIAGNOSTIC [3] No family history on file. [4] Social History Tobacco Use Smoking status: Former Types: Cigarettes Smokeless tobacco: Never Substance Use Topics Alcohol use: Not Currently Drug use: Not Currently Jh Pandey DO 12/21/241814 * Lary Marie RN - 12/21/2024 4:18 PM CDT Business Analytics Director enters pt's room to provide discharge instructions. Pt is upset and is complaining of new sx. Pt is tearful and starts talking about tests and that she came here to get an mri. It is reinforced to pt that she would not be able to get an mri in the er. Pt starts talking about wanting rx gabapentin because her dr mentioned it and she didn't want it at the time. Pt is advised she should talk to her dr regarding that. Pt is very scattered with complaints. Business Analytics Director offers several times to get the dr to come back in. Pt finally agrees to talk to the dr again. * Leroy Flores RN - 12/21/2024 3:18 PM CDT Pt here with ongoing pain and tingling to her left arm, shoulder, face, neck, x 1 year worse the past few days. Scheduled for a EMG on Monday. documented in this encounter Plan of Treatment Upcoming Encounters Date Type Department Care Team (Late st Contact Info) Description 12/24/2024 3:00 PM CDT Appointment [facility] [address] [place] [id number] Heidi Guajardo, [facility] [address] [facility] [address] [place] [address] [address] [address], OT [address] [place] [address] 12/26/2024 3:00 PM CDT Appointment [facility] [address] [place] [address] Heidi Guajardo, [facility] [address] [facility] [address] [place] [address] [address], [address] [place] [address] 12/31/2024 3:00 PM CDT Appointment [facility] [address] [place] [id number] Heidi Guajardo, [facility] [address] [facility] [address] [place] [address] [address], [address] [place] [address] 01/02/2025 3:00 PM CDT Appointment [facility] [address] [place] [id number] Heidi Guajardo, [facility] [address] [facility] [place] [address] [address], [address] [place] [address] documented as of this encounter Visit Diagnoses Diagnosis Chronic neck pain- Primary Cervicalgia Paresthesia Disturbance of skin sensation documented in this encounter Care Teams English Composition Teacher Relationship Specialty Start Date End Date Jimmy Contreras DO [address] [facility] [address] [place] [address] PCP - General INTERNAL MEDICINE 11/08/23 documented as of this encounter
--- OUTSIDE RECORDS SUMMARY | 2024-12-21 15:09 | XMS_ITS | Encounter Summary ---
Author Organization [facility] Address [facility] [place] [address] Care Team Providers Care Plumbing And Heating Mechanic Name Role Phone Jimmy Contreras DO Primary Care Provider [phone] Reason for Visit * Reason Comments Medical Problem Encounter Details Date Type Department Care Team (Late st Contact Info) Description 12/21/2024 3:09 PM CDT - 12/21/2024 4:25 PM CDT Emergency [facility] [address] [place] [address] [place] [address] Jh Pandey DO [address] [place] [phone] Medical Problem Discharge Disposition: Home or Self [...] CDT Leroy Flores , DOLORES Active * [place] Suicide Severity Rating Scale (Screener/Recent Self-Report) Question [...] Everywhere. * Chronic Neck Pain Discharge Instructions (Yemeni) * Paresthesia Discharge Instructions (Yemeni) documented in this encounter ED Notes * [...] Marie RN - 12/21/2024 4:18 PM CDT Gre Instructor enters pt's room to provide discharge instructions. [...] that. Pt is very scattered with complaints. Gre Instructor offers several times to get the dr [...] Info) Description 12/24/2024 3:00 PM CDT Appointment [facility] [address] [place] [id number] Heidi Guajardo, [facility] [address] [facility] [address] [place] [address] [address], [address] [place] [address] 12/26/2024 3:00 PM CDT Appointment [facility] [address] [place] [phone] Heidi Guajardo, [facility] [address] [facility] [address] [place] [address] [address] [place] [address] 12/31/2024 3:00 PM CDT Appointment [facility] [address] [place] [address] Heidi Guajardo, [facility] [address] [facility] [address] [place] [address] [address], [address] [place] [address] 01/02/2025 3:00 PM CDT Appointment [facility] [address] [place] [address] Heidi Guajardo, [facility] [address] [facility] [place] [address] [address], [address] [place] [address] documented as of this encounter Visit Diagnoses Diagnosis Chronic neck pain- Primary Cervicalgia Paresthesia Disturbance of skin sensation documented in this encounter Care Teams Plumbing And Heating Mechanic Relationship Specialty Start Date End Date Jimmy Contreras DO [address] [facility] [address] [place] [address] PCP - General INTERNAL MEDICINE 11/08/23 documented as of this encounter
--- NOTE | ~2024-12-22 | CT_ITS ---
CT CERVICAL SPINE WITHOUT CONTRAST CLINICAL HISTORY: pain with left sided radiculopathy Technique: Axial images thoracic inlet to skull base Sagittal and coronal reformats. No contrast CT images acquired with automatic exposure control for dose reduction DLP: 281 mGy-cm Comparison: None Findings: No acute fracture or listhesis. Reversal of normal cervical lordosis, likely positional and/or spasm. No significant degenerative changes. No significant central canal or neural foraminal stenoses. Disc spaces maintained. Prevertebral soft tissues within normal limits. Visualized lung apices: Clear. Visualized thyroid: Unremarkable. No enlarged cervical nodes. IMPRESSION: 1. No acute findings. Reviewed, dictated and finalized at location R. IMPRESSION: 1. No acute findings.
[2024-12-22 10:24] VITALS: BP 133/81; PULSE 87; RESP 16; TEMP 36.3; O2SAT 99
--- OUTSIDE RECORDS SUMMARY | 2024-12-22 10:26 | XMS_ITS | Data Portability ---
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 management [id number] Z30.9 [id number] Nat [place] [address],[place] [address] 08/03/2020 09:21:22 08/03/2020 09:59:14 Vaginitis 14105546 N76.0 Discussed use of mild soap like dove or ivory, cotton underwear w/out dye, hypoallerg enic detergent, wipe from front to back, avoid tub baths, keep perineum clean and dry, d/c use of baby wipes. Encouraged daily intake of yogurt or womens health probiotic. Internal and external affirm collected. [id number] [facility] [place] [address],[place] [address] 01/19/2021 16:26:20 01/19/2021 17:51:38 Urinary symptoms [id number] R39.9 Increase water and decrease caffeine. Will treat with macrobid. Urine sent for culture. Call if any worsening of symptoms, fever, back pain or flu like symptoms. Vaginitis 04408829 N76.0 Discussed use of mild soap like dove or ivory, cotton underwear w/out dye, hypoallerg enic detergent, wipe from front to back, avoid tub baths, keep perineum clean and dry, d/c use of baby wipes. Encouraged daily intake of yogurt or womens health probiotic. Internal and external affirm collected. History of BV would like swab. [id number] [facility] [address],[place] [address] 02/19/2021 16:43:36 02/20/2021 09:52:44 Urinary tract infectious disease [id number] N39.0 [id number] ILANA Jane-BC [facility] [address],[facility] [place] [address] 11/24/2022 16:12:27 11/25/2022 12:27:33 Gynecologic examination [id number] Z01.419 Take Calcium with Vitamin D 1200mg daily if not receiving in daily diet. It is strongly advised to have an annual flu shot and up can obtain at most pharmacies . If you have not had a TDap shot in the last 10 years you should obtain one as well. Discussed with patient & provided with informatio n regarding Gardisil vaccine to prevent the 4 strains for HPV that cause cervical cancer if under age 26. Encourage safe sexual practices, to use condoms and limit partners if not already in a monogamous relationsh ip. Do monthly self breast exams. Have mammogram yearly or every other year depending on family history. BRCA testing is now available for patients with strong genetic history of female cancer. If interested contact the office. Engage in daily exercise of low impact aerobic exercise 45-60 minutes 4-5 times weekly. Avoid tobacco and illicit drugs as well as using moderation with alcohol intake less than 1-2 8 oz beverages daily. This lifestyle behavior pattern will lead to less health conditions and longer life span. If BMI greater than 25 weight watchers or dietary consult advised. Patient received above instructio ns, and questions have been answered. If you have any questions please call or respond to this email. Patient was made aware of the patient portal and may obtain a paper copy of today's plan if desired.Pa p/hpv sentSTD Screen declinedGe netic Screen discussedC olon Screen naDexa Screen naRoutine Labs PCP Vaginitis [id number] N76.0 Suspect BV/yeast on examRx sent Counseled on medication R/B's, Most common side effects, & use. All questions were answered to patient satisfacti on. Furuncle of groin [id number] [id number] L02.224 Treated for boil of groin.RF sent to have on-hand.Swain ggested use of clindamyci n lotion for prevention . Counseled on medication R/B's, Most common side effects, & use. All questions were answered to patient satisfacti on. [id number] Mae Okeefe , [facility] [address] [address] 03/09/2023 16:20:04 03/09/2023 17:09:21 Contraception care management [id number] Z30.9 Depo-Prove ra is a female hormonal method of control. It s very effective in preventing . Depo-Prove ra contains a synthetic (man-made) form of the hormone progestero ne, called depo medroxypro gesterone acetate (DMPA). The Depo-Prove ra injection gives 3 months protection against . You should get one injection every 3 months (13 weeks) to get the best protection against . It s safe to get your injection up to 3 weeks earlier if you can t get your next injection in exactly 13 weeks. This will need to be given between 1-7 of next menstrual cycle.Cond oms or other secondary BC method is advised for at least the first 4wks.Possi ble SE's include: Mood changes, AUB, Dizziness, H/A's, bloating, loss of menstrual cycle, weight gain approx 5#'s every year for the first 3yrs.Does not prevent against STD's.Typi saul use only 6 out of every 100 women will become .P erfect use only 1 out of every 100 women will become .I t is recommende d for Depo to be initiated at least 2yrs after you have started your menstrual cycle to protect bone health as there is a risk of bone density loss. This is usually reversible once this medication is stopped.Wh ile on this medication recommend increasing calcium in diet & taking calcium 1300mg-180 0mg daily along with wendy D daily to prevent bone loss along with regular exercise. There is less of a risk of bone loss after age 18yo.After 3-5yrs use it may be recommende d to complete a dexa scan.This can be discussed with your healthcare provider. Appt made to restart Depo.Not SA for >5yrsOkay to come in next week for injection per CF Time spent in visit is a total of 30 mins with at least 50% of visit consisting of counseling and review of plan of care. Vaginitis [id number] N76.0 Suspect BV on examRx sent Counseled on medication R/B's, Most common side effects, & use. All questions were answered to patient satisfacti on. [id number] Mae Okeefe , [facility] [address] [address] 03/30/2023 16:19:16 03/30/2023 16:33:22 Contraception care management [id number] Z30.9 Depo-Prove ra is a female hormonal method of control. It s very effective in preventing . Depo-Prove ra contains a synthetic (man-made) form of the hormone progestero ne, called depo medroxypro gesterone acetate (DMPA). The Depo-Prove ra injection gives 3 months protection against . You should get one injection every 3 months (13 weeks) to get the best protection against . It s safe to get your injection up to 3 weeks earlier if you can t get your next injection in exactly 13 weeks. This will need to be given between 1-7 of next menstrual cycle.Cond oms or other secondary BC method is advised for at least the first 4wks.Possi ble SE's include: Mood changes, AUB, Dizziness, H/A's, bloating, loss of menstrual cycle, weight gain approx 5#'s every year for the first 3yrs.Does not prevent against STD's.Typi saul use only 6 out of every 100 women will become .P erfect use only 1 out of every 100 women will become .I t is recommende d for Depo to be initiated at least 2yrs after you have started your menstrual cycle to protect bone health as there is a risk of bone density loss. This is usually reversible once this medication is stopped.Wh ile on this medication recommend increasing calcium in diet & taking calcium 1300mg-180 0mg daily along with wendy D daily to prevent bone loss along with regular exercise. There is less of a risk of bone loss after age 18yo.After 3-5yrs use it may be recommende d to complete a dexa scan.This can be discussed with your healthcare provider. Appt made to restart Depo.Not SA for >5yrsOkay to come in next week for injection per CF Time spent in visit is a total of 30 mins with at least 50% of visit consisting of counseling and review of plan of care. [id number] Mae Okeefe [facility] [address] [address] 06/22/2023 15:56:16 07/12/2023 17:24:52 Contraception care management [id number] Z30.9 [id number] Jono Dunn MD [facility] [address] [address] 09/14/2023 15:30:26 09/15/2023 02:55:49 Contraception care management [id number] Z30.9 [id number] Jono Dunn MD [facility] [address],[facility] [place] [address] 12/06/2023 15:35:59 12/06/2023 16:02:25 Contraception care management [id number] Z30.9 Health Concerns Section Related Observation LastModified by Organization Detai ls LastModified Time None Recorded Concern Status LastModified by Organization Details LastModified Time None Recorded Advance Directives Directive N: Payers Insurance Date Sequence Insurance Name Policy Number Policy Obrien Covered Member ID Obrien Member ID Guarantor Name 03/20/2024 1 [facility] (MEDICAID HMO) [id number] Brittney Rosales [id number] Brittney Rosales Notes Date Note Type Note Provider Name and Address Organization Details Recorded Time 03/09/2023 text/html ROS as noted in the HPI Here today for contraception consult & vaginitis. D/C and odor has resolved.Still with some irritation.Wants to restart Depo. Neg pain of abd/pelvis/flankNeg urinary sx'sNeg GI sx'sNeg N/V/F/C/D++ Vag irritation, itchingNeg Odor, discharge Mae Okeefe, [facility] [address], [place], [address], [place] [facility] 03/09/2023 17:08:51 OBGyn Episode Ob Episode Information Episode Created Date Number of Fetuses Patient Bloodtype Patient rh Status Prepregnancy Weight lbs Domestic Partner Domestic Partner Phone Father Name Signing Agent Status 12/18/19 20 1 CLOSED Fetus Data First Name Last Name Admitted to NICU Weight (g) Sex Living Outcome Pediatric Complications Fetus ID Race Codes Race Delivery Type , Spontane ous [id number] Sammy Calculation Initial Sammy Date Initial Exam Date Initial Exam Provider Initial Ultrasound Date Last Menstrual Period Date Ultra Sound Weeks Gestation 0 Eighteen To Twenty Week Sammy Update Ultra Sound Date Fundal Height At Umbil Quickening Date Ultra Sound Latest Weeks Gestation Final Sammy Confirmed By Final Sammy Confirmed Date Final Sammy Date Ultra Sound Latest Days Gestation 0 0 Menstrual History Last Menstrual Date Menses Monthly On Bcp Conception Prior Menses Frequency Hcg Plus Date Menarche Onset Age Delivery Information Delivery Date Delivery Type Labor Anesthesia Weeks Gestation Incision Type Labor Labor Length Hrs Delivered By Post Complications Tubal Sterilization Discharge Date Comments 1 Discharge Information Feeding Method Contraceptive Method Maternal HG B and HCT Levels Ob Episode Information Episode Created Date Number of Fetuses Patient Bloodtype Patient rh Status Prepregnancy Weight lbs Domestic Partner Domestic Partner Phone Father Name Signing Agent Status 12/18/19 20 1 CLOSED Fetus Data First Name Last Name Admitted to NICU Weight (g) Sex Living Outcome Pediatric Complications Fetus ID Race Codes Race Delivery Type [id number] Vaginal Delivery Sammy Calculation Initial Sammy Date Initial Exam Date Initial Exam Provider Initial Ultrasound Date Last Menstrual Period Date Ultra Sound Weeks Gestation 0 Eighteen To Twenty Week Sammy Update Ultra Sound Date Fundal Height At Umbil Quickening Date Ultra Sound Latest Weeks Gestation Final Sammy Confirmed By Final Sammy Confirmed Date Final Sammy Date Ultra Sound Latest Days Gestation 0 0 Menstrual History Last Menstrual Date Menses Monthly On Bcp Conception Prior Menses Frequency Hcg Plus Date Menarche Onset Age Delivery Information Delivery Date Delivery Type Labor Anesthesia Weeks Gestation Incision Type Labor Labor Length Hrs Delivered By Post Complications Tubal Sterilization Discharge Date Comments 5 Discharge Information Feeding Method Contraceptive Method Maternal HG B and HCT Levels
--- OUTSIDE RECORDS SUMMARY | 2024-12-22 10:26 | XMS_ITS | Clinical Summary ---
Author Organization [facility] Address [address] [place] [address] Care Team Providers Care Efficiency Clerk Name Role Phone Nicolassilas Jimmy Chad SHEETS Primary Care Provider [phone] Allergies Active Allergy Reactions Criticality Noted Date Comments Phenazopyridine Hyperactive 11/08/2023 Medications No known medications Active Problems Problem Noted Date Diagnosed Date Nondisplaced fracture of fif th metatarsal bone, left foot, initial encounter for closed fracture 09/06/2024 Encounters Date Type Department Care Team Description 12/21/2024 3:09 PM CDT - 12/21/2024 4:25 PM CDT Emergency [facility] [address] [place] [address] [place] [address] Jh Pandey DO Medical Problem Discharge Disposition: Home or Self Care (Routine Discharge) 12/21/2024 Travel 12/19/2024 10:58 AM CDT - 12/19/2024 11:59 PM CDT Hospital Encounter [facility] [address] [place] [address] [address], Ave Self, OT Discharge Disposition: Home or Self Care (Routine Discharge) 12/19/2024 Travel 12/17/2024 11:39 AM CDT - 12/17/2024 11:59 PM CDT Hospital Encounter [facility] [address] [place] [address] [address]idi Guaj[address], Ave Self, OT Discharge Disposition: Home or Self Care (Routine Discharge) 12/17/2024 Travel 12/12/2024 2:50 PM CDT - 12/12/2024 11:59 PM CDT Hospital Encounter [facility] [address] [place] [address] Heidi Guajardo, Ave Self, OT Discharge Disposition: Home or Self Care (Routine Discharge) 12/12/2024 Travel 12/10/2024 2:55 PM CDT - 12/10/2024 11:59 PM CDT Hospital [facility] [address] [place] [address] He[address] Guajardo, Ave Self, OT Discharge Disposition: Home or Self Care (Routine Discharge) 12/10/2024 Travel 12/03/2024 3:00 PM CDT - 12/03/2024 11:59 PM CDT Hospital Encounter [facility] [address] [place] [address] Jimmy Contreras, Ave Burrell, OT Discharge Disposition: Home or Self Care (Routine Discharge) 12/03/2024 Travel 12/02/2024 8:00 AM CDT - 12/02/2024 11:59 PM CDT Hospital Encounter [facility] [address] [place] [address] Jimmy Contreras, [address]rell, OT Discharge Disposition: Home or Self Care (Routine Discharge) 12/02/2024 Travel 11/28/2024 11:43 AM CDT - 11/28/2024 11:59 PM CDT Hospital Encounter [facility] [address] [place] [address] Peng Gustafson, PT Heidi Guajardo, Ave Self, OT Discharge Disposition: Home or Self Care (Routine Discharge) 11/28/2024 Travel 11/26/2024 12:15 PM CDT - 11/26/2024 11:59 PM CDT Hospital Encounter [facility] [address] [place] [address] Heidi Guajardo, SHEET TAKER Preeti Enriquez, VERDUZCO Discharge Disposition: Home or Self Care (Routine Discharge) 11/26/2024 Travel 11/14/2024 1:37 PM CDT - 11/14/2024 11:59 PM CDT Hospital Encounter [facility] [address] [place] [address] Peng Gustafson, PT Heidi Guajardo, SHEET TAKER Ave Moreno, OT Discharge Disposition: Home or Self Care (Routine Discharge) 11/14/2024 Travel 11/05/2024 [facility]phone [facility] [address] [place] [address] Heidi Guajardo, SHEET TAKER Appointment Request 10/23/2024 12:56 PM CDT - 10/23/2024 11:59 PM CDT [facility] [address] [place], [place] [id number] Peng Gustafson, PT Fx Metacarpal Bone Discharge Disposition: Home or Self Care (Routine Discharge) 10/23/2024 Travel 10/09/2024 12:59 PM CDT - 10/09/2024 11:59 PM CDT [facility] [address] [place] [address] Peng Gustafson, PT Ata Duncan, Sallie Steen, DRUG ABUSE SOCIAL WORKER Ankle/foot Pain Discharge Disposition: Home or Self Care (Routine Discharge) 10/09/2024 Travel 10/02/2024 2:10 PM CDT - 10/02/2024 11:59 PM CDT Hospital En[facility] [address] [place] [address] Peng Gustafson, PT Ata Duncan, Sallie Steen, DRUG ABUSE SOCIAL WORKER Ankle/foot Pain Discharge Disposition: Home or Self Care (Routine Discharge) 10/02/2024 Travel 09/26/2024 1:34 PM CDT - 09/26/2024 11:59 PM CDT Hospital Encounter [facility] [address] [place] [address] Peng Gustafson, PT Ata Duncan, Corby Rivera, DRUG ABUSE SOCIAL WORKER Ankle/foot Pain Discharge Disposition: Home or Self Care (Routine Discharge) 09/26/2024 Travel 09/24/2024 3:07 PM CDT - 09/24/2024 11:59 PM CDT Hospital Encounter [facility] [address] [place] [address] Peng Gustafson, PT Perla, Ata Story, DPM Cheryl Nolasco, DRUG ABUSE SOCIAL WORKER Foot Pain Discharge Disposition: Home or Self Care (Routine Discharge) 09/24/2024 Travel from Last 3 Months Social History [...] Mass Index 26.45 12/21/2024 3:18 PM CDT Plan of Treatment Upcoming Encounters Date Type Department Care Team (Late st Contact Info) Description 12/24/2024 3:00 PM CDT Appointment [facility] [address] [place] [address] Heidi Guajardo, SHEET TAKER [address] [facility] [address] [place], [place] [id number] [address] Moreno, OT [address] [place] [address] 12/26/2024 3:00 PM CDT Appointment [facility] [address] [place] [address] Heidi Guajardo, [facility] [address] [facility] [address] [place] [address] [address], OT [address] [place] [address] 12/31/2024 3:00 PM CDT Appointment [facility] [address] [place] [address] Heidi Guajardo, [facility] [address] [facility] [address] [place] [address] [address], OT [address] [place] [address] 01/02/2025 3:00 PM CDT Appointment [facility] [address] [place] [address] Heidi Guajardo, [facility] [address] [facility] [address] [place] [address] [address], OT [address] [place] [address] Health Maintenance Due Date Last Done Comments Cervical Cancer Screening Pap Smear (Age 30 to 64) Every 3 Years 1994 Annual Physical 1997 Hepatitis C 01/09/2012 DTaP, Tdap and Td Vaccines (6 - Td or Tdap) 12/01/2018 12/01/2008, 11/15/1999, 04/17/1995, Additional history exists HPV Vaccines (1 - 3-dose SCDM series) 2021 Cervical Cancer Screening Pap with HPV Testing (Age 30 to 64) Every 5 Years 01/09/2024 Cervical Cancer Screening with HPV 01/09/2024 COVID-19 Vaccine ( season) 2024 Influenza Adult (#1) 2024 Hepatitis B Vaccines Completed 01/18/1995, 1994, 1994 [...] patient's age to complete this topic Insurance [employer] Care Teams Efficiency Clerk Relationship Specialty Start Date End Date Jimmy Contreras DO [address] [place] [address] PCP - General INTERNAL MEDICINE 11/08/23
--- OUTSIDE RECORDS SUMMARY | 2024-12-22 10:26 | XMS_ITS | Clinical Summary ---
Author Organization [facility] [address] Address [address] [place] [address] Care Team Providers Care Pantographer Name Role Phone Wyatt Duncan NP Primary Care Provider Allergies No known active allergies Medications doxycycline [...] 64 oz per day.,no soda, OJ,chocolate, are yolk spray drier sheets in fine delicate. Premature atrial contraction 06/12/2014 Overview (06/23/2016): Premature atrial contractions Tobacco dependence syndrome 06/12/2014 Overview (06/23/2016): Tobacco abuse Assessment & Plan (06/27/2021 10:49 AM CDT): Talked with her in regards to tobacco dependence, states that she is trying to stop. Did give her some resources for property management assistant with different program from the [facility] and [facility]. 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
--- OUTSIDE RECORDS SUMMARY | 2024-12-22 11:31 | XMS_ITS | Clinical Summary ---
Author Organization [facility] Address [address] [place] [id number] Care Team Providers Care Nurse Practical Name Role Phone Nicolassilas Jimmy Chad SHEETS Primary Care Provider [phone] Allergies Active Allergy Reactions Criticality Noted Date Comments Phenazopyridine Hyperactive 11/08/2023 Medications No known medications Active Problems Problem Noted Date Diagnosed Date Nondisplaced fracture of fif th metatarsal bone, left foot, initial encounter for closed fracture 09/06/2024 Encounters Date Type Department Care Team Description 12/21/2024 3:09 PM CDT - 12/21/2024 4:25 PM CDT Emergency [facility] [address] [place] [address] [place] [address] Jh Pandey DO Medical Problem Discharge Disposition: Home or Self Care (Routine Discharge) 12/21/2024 Travel 12/19/2024 10:58 AM CDT - 12/19/2024 11:59 PM CDT Hospital Encounter [facility] [address] [place] [address] [address], Ave Self, OT Discharge Disposition: Home or Self Care (Routine Discharge) 12/19/2024 Travel 12/17/2024 11:39 AM CDT - 12/17/2024 11:59 PM CDT Hospital Encounter [facility] [address] [place] [address] [address] Guaj[address], Ave Self, OT Discharge Disposition: Home or Self Care (Routine Discharge) 12/17/2024 Travel 12/12/2024 2:50 PM CDT - 12/12/2024 11:59 PM CDT Hospital Encounter [facility] [address] [place] [id number] Heidi Guajardo, Ave Self, OT Discharge Disposition: Home or Self Care (Routine Discharge) 12/12/2024 Travel 12/10/2024 2:55 PM CDT - 12/10/2024 11:59 PM CDT [facility] [address] [place] [phone] Heidi Guajardo, Ave Self, OT Discharge Disposition: Home or Self Care (Routine Discharge) 12/10/2024 Travel 12/03/2024 3:00 PM CDT - 12/03/2024 11:59 PM CDT [facility] [address] [place] [phone] Jimmy Contreras, Ave Burrell, OT Discharge Disposition: Home or Self Care (Routine Discharge) 12/03/2024 Travel 12/02/2024 8:00 AM CDT - 12/02/2024 11:59 PM CDT [facility] [address] [place] [phone] Jimmy Contreras, Ave Burrell, OT Discharge Disposition: Home or Self Care (Routine Discharge) 12/02/2024 Travel 11/28/2024 11:43 AM CDT - 11/28/2024 11:59 PM CDT [facility] [address] [place] [phone] Peng Gustafson, PT Heidi Guajardo, Ave Self, OT Discharge Disposition: Home or Self Care (Routine Discharge) 11/28/2024 Travel 11/26/2024 12:15 PM CDT - 11/26/2024 11:59 PM CDT Hospital Encounter [facility] [address] [place] [phone] Heidi Guajardo, DRYLAND FARMER Preeti Enriquez, VERDUZCO Discharge Disposition: Home or Self Care (Routine Discharge) 11/26/2024 Travel 11/14/2024 1:37 PM CDT - 11/14/2024 11:59 PM CDT [facility] [address] [place] [address] Peng Gustafson, PT Heidi Guajardo, DRYLAND FARMER Ave Moreno, OT Discharge Disposition: Home or Self Care (Routine Discharge) 11/14/2024 Travel 11/05/2024 [facility]phone [facility] [address] [place] [address] Heidi Guajardo, DRYLAND FARMER Appointment Request 10/23/2024 12:56 PM CDT - 10/23/2024 11:59 PM CDT [facility] [address] [place], [place] [id number] Peng Gustafson, PT Fx Metacarpal Bone Discharge Disposition: Home or Self Care (Routine Discharge) 10/23/2024 Travel 10/09/2024 12:59 PM CDT - 10/09/2024 11:59 PM CDT [facility] [address] [place] [phone] Peng Gustafson, PT Ata Duncan, Sallie Steen, DIRECTOR OF LABOR RELATIONS Ankle/foot Pain Discharge Disposition: Home or Self Care (Routine Discharge) 10/09/2024 Travel 10/02/2024 2:10 PM CDT - 10/02/2024 11:59 PM CDT [facility] [address] [place] [phone] Peng Gustafson, PT Ata Duncan, Sallie Steen, DIRECTOR OF LABOR RELATIONS Ankle/foot Pain Discharge Disposition: Home or Self Care (Routine Discharge) 10/02/2024 Travel 09/26/2024 1:34 PM CDT - 09/26/2024 11:59 PM CDT Hospital [facility] [address] [place] [phone] Peng Gustafson, PT Ata Duncan, Corby Rivera, DIRECTOR OF LABOR RELATIONS Ankle/foot Pain Discharge Disposition: Home or Self Care (Routine Discharge) 09/26/2024 Travel 09/24/2024 3:07 PM CDT - 09/24/2024 11:59 PM CDT Hospital Encounter [facility] [address] [place] [address] Peng Gustafson, PT Perla, Ata Story, DPM Cheryl Nolasco, DIRECTOR OF LABOR RELATIONS Foot Pain Discharge Disposition: Home or Self [...] Info) Description 12/24/2024 3:00 PM CDT Appointment [facility] [address] [place] [id number] Heidi Guajardo, DRYLAND FARMER [address] [facility] [address] [place], [place] [id number] [address] Moreno, OT [address] [place] [address] 12/26/2024 3:00 PM CDT Appointment [facility] [address] [place] [address] Heidi Guajardo, [facility] [address] [facility] [address] [place] [address] Ave Moreno, OT [address] [place] [address] 12/31/2024 3:00 PM CDT Appointment [facility] [address] [place] [address] Heidi Guajardo, [facility] [address] [facility] [address] [place] [address] Ave Moreno, OT [address] [place] [address] 01/02/2025 3:00 PM CDT [facility] [address] [place] [address] Heidi Guajardo, [facility] [address] [facility] [address] [place] [address] [address] Moreno, OT [address] [place] [address] Health Maintenance Due Date Last Done Comments [...] this topic Insurance [employer] Care Teams Nurse Practical Relationship Specialty Start Date End Date Jimmy Contreras DO [address] [place] [address] PCP - General INTERNAL MEDICINE 11/08/23
--- OUTSIDE RECORDS SUMMARY | 2024-12-22 11:32 | XMS_ITS | Clinical Summary ---
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 Premature atrial contraction 06/12/2014 Overview (06/23/2016): Premature atrial contractions Tobacco dependence syndrome 06/12/2014 Overview (06/23/2016): Tobacco abuse Assessment & Plan (06/27/2021 10:49 AM CDT): Talked with her in regards to tobacco dependence, states that she is trying to stop. 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
[2024-12-22] MEDS: KETOROLAC 30 MG/ML VIAL (*BKC) IV PUSH (11:54)
[2024-12-22] MEDS: diazePAM INJ (*CRX) 10 MG/2 ML SYRINGE 5 MG IV PUSH (11:55)
[2024-12-22] MEDS: SODIUM CHLORIDE 0.9% IV 1,000 ML 999 ML IV CONT (11:59)
--- NOTE | 2024-12-22 14:22 | ED_ITS ---
HPI - General Adult General Chief complaint: Unspecified Stated complaint: neck, shoulder pain Time Seen by Provider: 12/22/24 11:18 History of Present Illness HPI narrative: Patient is a 29-year-old female who presents ER with pain in left neck and shoulder moving down her left arm. Worsening over last month. She takes Tylenol once today without improvement. Has pain with turning her head and with sitting up. No lower extremity numbness or tingling. She is able move at the elbow and wrist but has pain with moving of the shoulder. No known trauma. Related Data Allergies Allergy/AdvReac Type Severity Reaction Status Date / Time phenazopyridine (From Allergy Intermediate Anxiety Verified 10/31/24 11:41 Pyridium) Review of Systems Constitutional: Constitutional: Reports no additional constitutional complaints Musculoskeletal: Musculoskeletal: Reports no additional musculoskeletal complaints Integumentary/Breasts: Skin/Breast: Reports system reviewed and no additional complaints, except as docu Neurologic: Reports system reviewed and no additional complaints, except as documented PMFSH Past Medical History Medical History (Updated 12/22/24 @ 14:30 by Ata Marshall MD) Hypomania ADD (attention deficit disorder) Bipolar disorder Surgical History Surgical History History of dilation and curettage Family History Family History Father Depression Anxiety Sibling Alcoholism Grandparent Cerebrovascular accident Grandparent Anxiety Depression Social History Social History Smoking status: Former smoker Alcohol intake: never Substance use: never Lack of Transportation: No Lack of Food: Never True Current Housing: I Have Housing Concerned About Future Housing: No Difficulty Paying Gas/Electric Bills: No Difficulty Paying for Meds: No Currently Unemployed: No Education: Bachelor's Degree Difficulty w/ Childcare or Family Care: No Living arrangements: alone Occupation/Education: occupation Exam Narrative: GENERAL: Well-appearing, well-nourished, and in no acute distress. HEAD: Normocephalic, atraumatic. ENT: Mucous membranes moist. NECK: Supple. Tender palpation left paraspinal muscular region as well as left trapezius with spasm noted. CHEST: Clear to auscultation. No respiratory distress. HEART: Regular rate and rhythm. Normal peripheral pulses. EXTREMITIES: Normal range of motion. No edema. NEURO: Alert and oriented x3. PSYCH: Normal mood and affect. Course Course Emergency Course: Pain improved with toradol/valium. Discharge home with supportive care medication. CT imaging normal. Discussed we would not perform MRI here. Vital Signs Vital signs: Vital Signs Temperature 97.4 F L 12/22/24 10:24 Pulse Rate 87 12/22/24 10:24 Respiratory Rate 16 12/22/24 10:24 Blood Pressure 133/81 12/22/24 10:24 Pulse Oximetry 99 12/22/24 10:24 Temperature 97.4 F L 12/22/24 10:24 Pulse Rate 87 12/22/24 10:24 Respiratory Rate 16 12/22/24 10:24 Blood Pressure 133/81 12/22/24 10:24 Pulse Oximetry 99 12/22/24 10:24 Medical Decision Making Vital Signs Vital Signs: Vital Signs Temperature 97.4 F L 12/22/24 10:24 Pulse Rate 87 12/22/24 10:24 Respiratory Rate 16 12/22/24 10:24 Blood Pressure 133/81 12/22/24 10:24 Pulse Oximetry 99 12/22/24 10:24 Temperature 97.4 F L 12/22/24 10:24 Pulse Rate 87 12/22/24 10:24 Respiratory Rate 16 12/22/24 10:24 Blood Pressure 133/81 12/22/24 10:24 Pulse Oximetry 99 12/22/24 10:24 Imaging Data Radiologist's impression: ITS Impressions Cervical Spine CT 12/22/24 13:00 IMPRESSION: 1. No acute findings. Discharge Plan Discharge Clinical Impression: Cervical radiculopathy, Muscle spasm Patient Disposition: Home Condition: Stable Instructions: Cervical Radiculopathy (ED), Muscle Spasm (ED) Additional Instructions: Please return to the emergency department if you develop severe pain that is not controlled by pain medications or if you are unable to walk because of pain or weakness. Return to the emergency department immediately if you develop fevers, loss of bowel or bladder control (dribbling of urine or having accidents you wouldn't normally have), inability to urinate, numbness of your genital or anal area, or weakness/numbness of your legs or arms as these could all be signs of a serious medical emergency. Patient Language: Malagasy Prescriptions: New cyclobenzaprine 10 mg tablet 10 mg PO TID PRN (Reason: muscle spasm) Qty: 20 0RF naproxen 375 mg tablet 375 mg PO BID Qty: 14 0RF Follow-up/Referrals: Heidi Guajardo, WATER SUPPLY ENGINEER-C [Primary Care Provider, Internal Medicine] - 1 Week
[2024-12-22 15:05] VITALS: BP 127/78; PULSE 81; RESP 16; TEMP 36.6; O2SAT 99
== END 2024-12-22 15:05 | disposition home or self-care (01) ==
PROVIDERS: Emergency Provider Emergency Medicine; PCP Clinical Nurse Specialist
DX: M54.12 Radiculopathy, cervical region (principal); M62.830 Muscle spasm of back
CPT/HCPCS: 72125; 96361; 96374; 96375; 99284; J1885; J3360; J7030